=== PATIENT | female | born 1950 | race Caucasian/White ===

== ENCOUNTER 2019-03-16 07:07 | Inpatient (IN) ==
[2019-03-16] MEDS ORDERED: ASPIRIN 81 MG TAB.CHEW PO ONE (07:20)
[2019-03-16] MEDS ORDERED: LORazepam 2 MG/ML DISP.SYRIN IV ONE (07:23)
[2019-03-16] MEDS ORDERED: CYCLOBENZAPRINE HCL 10 MG TABLET PO ONE (07:23)
--- NOTE | 2019-03-16 07:24 | ERNOTE ---
<Arin Ferris - Last Filed: 03/16/19 07:59> Lower Extremity HPI - Narrative Date of Service: 03/16/19 - General Time Seen by Provider: 03/16/19 07:10 Source: patient Exam Limitations: no limitations - Immun/Allergies/Home Medications Immunizations: IMMUNIZATION HX Immunizations Up to Date Yes History of Influenza Vaccine No Hx Pneumococcal Vaccination No Allergies/Adverse Reactions: Allergies Allergy/AdvReac Type Severity Reaction Status Date / Time No Known Allergies Allergy Verified 03/16/19 12:17 Home Medications: HOME MEDICATIONS Naproxen Sodium [Aleve] 220 mg PO DAILY 03/04/19 [Last Taken Unknown] Acetaminophen 650 mg PO PRN 03/16/19 [Last Taken Unknown] Amlodipine Besylate 5 mg PO 03/16/19 [Last Taken Unknown] Arginine/Ascorbate Sod/Jovana AC [Arginaid Powder] 1 ea PO 03/16/19 [Last Taken Unknown] Aspirin [Aspirin Chewable] 81 mg PO DAILY 03/16/19 [Last Taken Unknown] Atorvastatin Calcium 80 mg PO HS 03/16/19 [Last Taken Unknown] Bisacodyl [Dulcolax Suppository] 10 mg RC DAILY PRN 03/16/19 [Last Taken Unknown] Clopidogrel Bisulfate [Plavix] 75 mg PO 03/16/19 [Last Taken Unknown] Lisinopril [Zestril] 10 mg PO 03/16/19 [Last Taken Unknown] Metoprolol Tartrate 50 mg PO 03/16/19 [Last Taken Unknown] Promethazine HCl [Phenergan (Promethazine)] 12.5 mg PO 03/16/19 [Last Taken Unknown] Promethazine HCl [Phenergan (Promethazine)] 12.5 mg PO Q4H PRN 03/16/19 [Last Taken Unknown] Sennosides/Docusate Sodium [Senna-S Tablet] 2 ea PO BID 03/16/19 [Last Taken Unknown] Warfarin Sodium [Jantoven] 2 mg PO 03/16/19 [Last Taken Unknown] oxyCODONE HCL/ACETAMINOPHEN [Oxycodone-Acetaminophen 5-325] 2 ea PO 10XD 03/16/19 [Last Taken Unknown] - History of Present Illness Narrative: Patient is brought by ambulance from nursing facility where she is in a fall, hip fracture and fixation surgery. She is complaining of bilateral leg pain in the knees, thighs and lower extremities. She states the pain is severe, crampin g, comes and goes. She is also complaining of pain all over. She has had 2 Percocet in the nursing facility, also had a nitroglycerin in the nursing facility before she was transferred. She received Toradol IV in the ambulance prior to arrival here. Patient continues to state that she has pain all over including some chest discomfort and shortness of breath. She is quite anxious. She did have an FL while she was in the hospital for her hip fracture. She is currently on Coumadin. She states in the nursing facility she is getting around both with walker and wheelchair. She states she has not had a fall recently. The pain just became worse while she was sleeping and then when she got up this morning. Again, she denies a fall. Her hip surgery was on the right hip. She states that yesterday she was incontinent of stool. She feels the need to have a BM now as well. Occurred: this morning Location of Incident: other - Nursing facility Method of Injury: Reports: no apparent injury. Denies: fell Review of Systems - Review of Systems Constitutional: Present: weakness. Absent: fever, chills ENT: Present: no symptoms reported Respiratory: Present: no symptoms reported Cardiology: Present: chest pain. Absent: syncope, edema Gastrointestinal/Abdominal: Present: no symptoms reported Skin: Present: no symptoms reported Neurological: Present: anxiety, headache, weakness, numbness, tingling Medical History (Last Reviewed 03/16/19 @ 07:42 by Arin Ferris MD) CVA (cerebral vascular accident) Hypertension Surgical History: Surgical History (Last Reviewed 03/16/19 @ 07:42 by Arin Ferris MD) No pertinent past surgical history Family History: Family History (Last Reviewed 03/16/19 @ 07:42 by Arin Ferris MD) Other Family history unknown Social History: (Last Reviewed 03/16/19 @ 07:42 by Arin Ferris MD) Social History: adopted: Yes adopted comment: raised by other family not parents lives independently: Yes household members: none current occupational status: retired Tobacco: Smoking Status: Former smoker Alcohol: alcohol intake: former Substance Use: substance use type: does not use Physical Exam - Physical Exam General Appearance: Present: wd/wn, moderate distress Head Exam: Present: normal inspection, no evidence of injury Ears, Nose, Throat: Present: normal ENT inspection Neck: Present: normal inspection, supple Respiratory: Present: no respiratory distress, chest nontender, lungs clear Cardiovascular/Chest: Present: regular rate, rhythm, tachycardia Gastrointestinal/Abdominal: Present: normal bowel sounds, nontender Extremity Exam: Present: normal inspection, no edema, other - Patient has intact sensation bilaterally. She complains of cramping severe pain. She does state in the past she has had muscle spasms which have continued to bother her since surgery. Capillary refill is intact distally. Dorsalis pedis pulses are strong bilaterally. She wiggles her feet just fine, motor is intact. She complains of pain numbness and tingling bilaterally. There are no focal neurologic symptoms. Neurological Exam: Present: alert, oriented, normal mood/affect, no motor/sensor y deficits Progress - Vital Signs Patient's Vital Signs:: I have reviewed the patient's vital signs. Vital Signs: Vital Signs 03/16/19 07:10 Temperature 36.4 C Pulse Rate 101 H Respiratory Rate 32 H Blood Pressure 112/70 - EKG EKG #1 EKG: NSR EKG read: Interp. by me EKG Comments: Patient is EKG shows sinus tachycardia with a ventricular rate of 102. I do not appreciate any ST elevation or depression. - Progress/Reassessment Chief Complaint: Lower Extremity Pain/ Injury Progress:: Unchanged Progress Note-Subjective: 03/16/19 07:55 Patient's work-up is in progress. She is been given lorazepam and cyclobenzaprine in effort to help with her symptoms. Labs have just been drawn and her EKG completed. Aspirin has been administered. The patient does state that she starting to feel somewhat better. She also feels the need to have a bowel movement. We discussed this. I answered questions. Her care will be transitioned to oncoming ER physician. Departure Clinical Impression: Non-ST elevation FL (NSTEMI), Hyponatremia Anemia Qualifiers: Anemia type: unspecified type Qualified Code(s): D64.9 - Anemia, unspecified Fracture of hip, right, closed Qualifiers: Encounter type: subsequent encounter Fracture healing: with routine healing Qualified Code(s): S72.001D - Fracture of unspecified part of neck of right femur, subsequent encounter for closed fracture with routine healing - Departure Disposition: Still a patient Condition: Stable <Haydee Corbett - Last Filed: 03/16/19 12:48> Lower Extremity HPI - Immun/Allergies/Home Medications Immunizations: IMMUNIZATION HX Immunizations Up to Date Yes History of Influenza Vaccine No Hx Pneumococcal Vaccination No Medical History (Last Updated 03/16/19 @ 12:48 by Haydee Corbett MD) NSTEMI (non-ST elevated myocardial infarction) CVA (cerebral vascular accident) Hypertension Surgical History: Surgical History (Last Updated 03/16/19 @ 12:48 by Haydee Corbett MD) History of hysterectomy (Acute) History of hip surgery (Acute) Family History: Family History (Last Reviewed 03/16/19 @ 07:42 by Arin Ferris MD) Other Family history unknown Social History: (Last Reviewed 03/16/19 @ 07:42 by Arin Ferris MD) Social History: adopted: Yes adopted comment: raised by other family not parents lives independently: Yes household members: none current occupational status: retired Tobacco: Smoking Status: Former smoker Alcohol: alcohol intake: former Substance Use: substance use type: does not use Physical Exam - Physical Exam General Appearance: Present: wd/wn, no apparent distress Respiratory: Present: no respiratory distress, normal breath sounds, lungs clear Cardiovascular/Chest: Present: regular rate, rhythm Gastrointestinal/Abdominal: Present: nontender Extremity Exam: Present: normal inspection - well healing woundon lateral hip without sign of bleeding or induration Neurological Exam: Present: alert, oriented Skin Exam: Present: normal color, warm/dry Progress - Results and Orders Patient's Lab Results:: I have reviewed the patient's lab results. - Vital Signs Patient's Vital Signs:: I have reviewed the patient's vital signs. Vital Signs: Vital Signs 03/16/19 07:10 03/16/19 07:49 Temperature 36.4 C 36.4 C Pulse Rate 101 H 108 H Respiratory Rate 32 H 27 H Blood Pressure 112/70 133/66 O2 Sat by Pulse Oximetry 99 - X-Ray X-Ray #1 X-Ray: chest - hyperinflated, no acute changes Interpretation: Reviewed by me - Progress/Reassessment Progress Note-Subjective: 03/16/19 08:42 patient lethargic after medications but easily arousable, states generalized pain in 5/ discussed lab results including low Na and Hb, will get records from [facility], patient was transferred there on 03/04 after hip fracture as she had elevated troponin for cardiology consults prior to surgery, has been in [facility] for about a week. 03/16/19 10:30 reviewed chart form [facility], patient was evaluated by cardiology for elevated troponin, had echo and stress test, was felt to be stable for surgery and further conservative management had hip surgery on the , started on coumadin post op, on aspirin and plavix for her heart ENT consult for nose bleed was cauterized, Hb at discharge 10 updated patient and son on results and plan, patient states that she has had intermittent nose bleeds at the [facility], none currently, denies any other bleeding source 03/16/19 10:[address] Castillo, okay to admit for anemia and hyponatremia okay to transfuse one unit of RBCs as ordered and guiac all stools
[2019-03-16 07:41] LABS: Mean Cell Volume 98.5 fl (78-100); Mean Corpuscular Hemoglobin 34.3 pg (27-31); Mean Corpuscular Hgb Conc 34.8 g/dl (32-36); Mean Platelet Volume 8.5 fl (8-12.5); Neutrophil # 11.1 K/mm3 (1.3-6.0); Neutrophil % 85.8 % (42-75.0); Platelet Count 476 K/mm3 (150-450); Red Blood Count 2.01 M/mm3 (4.2-5.4); Red Cell Distribution Width 12.4 % (11.5-14.0)
[2019-03-16 07:59] LABS: Hematocrit 19.8 % (37.0-47.0); Hemoglobin 6.9 gm/dL (12.5-16.0)
[2019-03-16 08:09] LABS: Anion Gap 15.7 mmol/L (6.8-13.8); BUN/Creatinine Ratio 42.4 (9.0-21.6); Ca. Corrected For Albumin 8.9 mg/dL (8.4-10.2); Calcium * 8.4 mg/dL (7.9-10.9); Carbon Dioxide 20.8 mmol/L (24-32.6); Potassium 4.5 mmol/L (3.4-4.6); Total Protein 6.3 gm/dL (6.2-8.2); Troponin I 0.084 ng/mL (0.00-0.10)
[2019-03-16 08:19] LABS: Prothrombin Time (Patient) 41.6 Seconds (9.1-10.7)
[2019-03-16 08:21] LABS: INR 4.45 INR (0.92-1.08); Partial Thrombolplastin Time 43.7 Seconds (24-32)
[2019-03-16] MEDS ORDERED: NORMAL SALINE 1,000 ML IV ONE (08:45)
[2019-03-16] MEDS ORDERED: NORMAL SALINE 1,000 ML IV PRN (13:22)
--- NOTE | 2019-03-16 13:22 | DS ---
Transfer Discharge Summary - Diagnosis(s)/Problems (1) Sepsis Narrative: with end organ dysfunction Problem: Acute (2) Leukopenia Problem: Acute (3) Thrombocytosis Problem: Acute (4) Hyponatremia with decreased serum osmolality Problem: Acute (5) Hyperglycemia without ketosis Problem: Acute (6) Anemia Problem: Acute (7) CAD (coronary artery disease) Problem: Chronic (8) Hyperlipemia Problem: Chronic (9) Essential hypertension Problem: Chronic (10) COPD (chronic obstructive pulmonary disease) Problem: Chronic (11) Alcohol abuse Problem: Chronic - Course Description of Stay: 69 female recently diagnosed with coronary artery disease and NSTEMI in March,, with recent right intertrochanteric fracture of right proximal femur repaired by orthopedics at [facility] in March,, hyperlipidemia, essential hypertension, COPD with chronic cigarette abuse, alcohol abuse,presents from [facility] with complaints of fatigue and not feeling well. Associated with shortness of breath and intermittent chest pain. On arrival to the ER patient was tachycardic, tachypneic, EKG concerning for ST deviation and moderate T wave abnormality possible anterolateral ischemia. Cardiac work-up concerning for ischemia with troponins greater than 0.3. In comparison to medical records from [facility] on March 04, 2019, a significant change can be appreciated. Previous labs were largely unremarkable, however today I can appreciate leukopenia, thrombocytosis, acute drop in hemoglobin from 14 on March 04 2019 to 6.9 on admission today. Despite leukopenia, a left shift can be appreciated on labs. Patient has multiple electrolyte abnormalities, including hyponatremia, increased anion gap, hyperglycemia and dehydration. Patient currently on Coumadin and PT/INR is elevated at 4.45. Initially symptoms were attributed to an acute bleed, however source is unknown. Chest x-ray completed is unremarkable. Imaging of the abdomen and pelvis without contrast is pending, for evaluation for a possible bleed at surgical site. She is unable to provide a stool sample. She has signs of oliguria and is unable to pass urine. After evaluating patient and reviewing the medical records from [facility] and labs obtained today, there is concerne for sepsis with end organ dysfunction. Stat sepsis work-up completed. Due to hypotension, patient received a bolus of normal saline, type and cross completed and received 1 unit of packed red blood cells, followed by fluid resuscitation of 1 L of normal saline. Vancomycin 1250 mg IV x1 and Zosyn 3.375 mg IV x1 administered. Total patient received 2 L of normal saline prior to transfer. Patient states on March 04 2019, she fell presented to [place] ER found to have right hip fracture however due to cardiac condition patient was transferred to [facility] for further evaluation and treatment. Cardiac evaluation completed at [facility] center, cardiac Cath completed to revealed 50 to 59% stenosis within the left internal carotid on the basis of atherosclerotic plaque and probably less than 50% stenosis within the right internal carotid artery, EF was normal and nuclear stress test completed and findings consistent with ischemia. Dr. Laurent was a hydraulic rock drill operator on board during hospitalization. Once patient was stable, patient scheduled for repair of the right hip by Dr. Corado (orthopedic surgeon)MD. discharged to [facility]. Patient condition is critical however she is hemodynamically stable, however, if her condition was to acutely decompensate she may require vasopressors and need a central line and be admitted to the ICU. Due to patient's condition she will need to be transferred. [facility] was consulted for transfer. Discussed case with MD Flash and he accepted patient. We will continue to forward labs as they become available to [facility]. He advised nurse should call report to [facility] ICU, phone number provided: [phone]. Consultation Done:: Dr Pillo MD (Hospitalist) Procedures Performed: none - Results and Findings Results and Findings: Laboratory Results - last 24 hr 03/16/19 03/16/19 03/16/19 07:34 07:34 07:34 WBC 1.0 L RBC 2.01 L Hgb 6.9 L* D Hct 19.8 L* D MCV 98.5 MCH 34.3 H MCHC 34.8 RDW 12.4 Plt Count 476 H MPV 8.5 Immature Gran % (Auto) 0.50 H Immature Gran # (Auto) 0.06 H Neutrophils % 85.8 H Lymphocytes % 7.1 L Monocytes % 6.1 Eosinophils % 0.2 Basophils % 0.3 Nucleated RBC % 0.0 Neutrophils # 11.1 H Lymphocytes # 0.92 L Monocytes # 0.8 Eosinophils # 0.0 Absolute Basophils 0.0 PT 41.6 H INR (Anticoag Therapy) 4.45 H* PTT (Caitie) 43.7 H D Sodium 127 L Plasma Sodium 127 L Potassium 4.5 D Chloride 95 L Carbon Dioxide 20.8 L Anion Gap 15.7 H BUN 28 H D Creatinine 0.66 Est GFR (Non-Af Amer) 95 BUN/Creatinine Ratio 42.4 H Random Glucose 121 H Calcium 8.4 Calcium Adj for Albumin 8.9 Total Bilirubin 1.0 AST 57 H ALT 36 Alkaline Phosphatase 79 Troponin I 0.084 Total Protein 6.3 Albumin 3.0 L Blood Type Antibody Screen Crossmatch 03/16/19 08:00 WBC RBC Hgb Hct MCV MCH MCHC RDW Plt Count MPV Immature Gran % (Auto) Immature Gran # (Auto) Neutrophils % Lymphocytes % Monocytes % Eosinophils % Basophils % Nucleated RBC % Neutrophils # Lymphocytes # Monocytes # Eosinophils # Absolute Basophils PT INR (Anticoag Therapy) PTT (Caitie) Sodium Plasma Sodium Potassium Chloride Carbon Dioxide Anion Gap BUN Creatinine Est GFR (Non-Af Amer) BUN/Creatinine Ratio Random Glucose Calcium Calcium Adj for Albumin Total Bilirubin AST ALT Alkaline Phosphatase Troponin I Total Protein Albumin Blood Type A Positive Antibody Screen Negative Crossmatch See Detail - Medications Medications: Active Medications Discontinued Medications Aspirin (Aspirin Chewable) 324 mg PO ONCE ONE Stop: 03/16/19 07:21 Last Admin: 03/16/19 07:38 Dose: 324 mg Documented by: Cyclobenzaprine HCl (Flexeril) 10 mg PO ONCE ONE Stop: 03/16/19 07:24 Last Admin: 03/16/19 07:38 Dose: 10 mg Documented by: Sodium Chloride (Sodium Chloride 0.9%) 1,000 mls @ 999 mls/hr IV .Q1H1M ONE Stop: 03/16/19 09:45 Last Infusion: 03/16/19 10:00 Dose: Infused Documented by: Lorazepam (Ativan) 1 mg IV ONCE ONE Stop: 03/16/19 07:24 Last Admin: 03/16/19 07:38 Dose: 1 mg Documented by: - Disposition Disposition: Short Term Hospital Inpatient Condition: Critical Discharge Date: 03/16/19 Discharge Time: 14:46
[2019-03-16] MEDS ORDERED: VANCOMYCIN HCL IV ONE ×2 (13:38)
[2019-03-16] MEDS ORDERED: DEXTROSE 5% IV ONE ×2 (13:38)
[2019-03-16] MEDS ORDERED: WATER IV ONE ×2 (13:38)
[2019-03-16] MEDS ORDERED: PIPERACILLIN SODIUM/TAZOBACTAM 3.375 GM in DEXTROSE 5 % IN WATER 100 ML IV SCH ×2 (13:45)
[2019-03-16 13:47] LABS: Urine Appearance Slightly Cloudy (CLEAR); Urine Bilirubin Negative (NEGATIVE); Urine Color Yellow
[2019-03-16 13:48] LABS: Urine Blood 25 /ul (NEGATIVE); Urine Ketone Negative (NEGATIVE); Urine Nitrite Positive (NEGATIVE); Urine Protein Negative (NEGATIVE); Urine Urobilinogen Normal (NORMAL)
[2019-03-16 13:49] LABS: Urine Bacteria 4+; Urine RBC 0-5 /hpf (0-5); Urine WBC >50 /hpf (0-5)
[2019-03-16 14:05] LABS: CRP 2.3 mg/dL (0.0-0.9)
[2019-03-16] MEDS ORDERED: PIPERACILLIN SODIUM/TAZOBACTAM 3.375 GM in DEXTROSE 5 % IN WATER 100 ML IV ONE ×2 (14:15)
[2019-03-16 14:19] LABS: Troponin I 0.328 ng/mL (0.00-0.10)
[2019-03-16 16:03] VITALS: BP 132/74
--- NOTE | 2019-03-19 15:09 | HP ---
Chief Complaint - Chief Complaint Date of Service: 03/16/19 Time of Service: 12:00 Chief Complaint: sob, fatigue and weakness History of Present Illness: 69 female recently diagnosed with coronary artery disease and NSTEMI in March,, with recent right intertrochanteric fracture of right proximal femur repaired by orthopedics at [facility] in March,, hyperlipidemia, essential hypertension, COPD with chronic cigarette abuse, alcohol abuse,presents from [facility] with complaints of fatigue and not feeling well. Associated with shortness of breath and intermittent chest pain. On arrival to the ER patient was tachycardic, tachypneic, EKG concerning for ST deviation and moderate T wave abnormality possible anterolateral ischemia. Cardiac work-up concerning for ischemia with troponins greater than 0.3. In comparison to medical records from [facility] on March 04, 2019, a significant change can be appreciated. Previous labs were largely unremarkable, however today I can appreciate leukopenia, thrombocytosis, acute drop in hemoglobin from 14 on March 04 2019 to 6.9 on admission today. Despite leukopenia, a left shift can be appreciated on labs. Patient has multiple electrolyte abnormalities, including hyponatremia, increased anion gap, hyperglycemia and dehydration. Patient currently on Coumadin and PT/INR is elevated at 4.45. Initially symptoms were attributed to an acute bleed, however source is unknown. Chest x-ray completed is unremarkable. Imaging of the abdomen and pelvis without contrast is pending, for evaluation for a possible bleed at surgical site. She is unable to provide a stool sample. She has signs of oliguria and is unable to pass urine. After evaluating patient and reviewing the medical records from [facility] and labs obtained today, there is concerne for sepsis with end organ dysfunction. Stat sepsis work-up completed. Due to hypotension, patient received a bolus of normal saline, type and cross completed and received 1 unit of packed red blood cells, followed by fluid resuscitation of 1 L of normal saline. Vancomycin 1250 mg IV x1 and Zosyn 3.375 mg IV x1 administered. Total patient received 2 L of normal saline prior to transfer. Patient states on March 04 2019, she fell presented to [place] ER found to have right hip fracture however due to cardiac condition patient was transferred to [facility] for further evaluation and treatment. Cardiac evaluation completed at [facility] center, cardiac Cath completed to revealed 50 to 59% stenosis within the left internal carotid on the basis of atherosclerotic plaque and probably less than 50% stenosis within the right internal carotid artery, EF was normal and nuclear stress test completed and findings consistent with ischemia. Dr. Laurent was a bar captain on board during hospitalization. Once patient was stable, patient scheduled for repair of the right hip by Dr. Corado (orthopedic surgeon)MD. discharged to [facility]. Patient condition is critical however she is hemodynamically stable, however, if her condition was to acutely decompensate she may require vasopressors and need a central line and be admitted to the ICU. Due to patient's condition she will need to be transferred. [facility] was consulted for transfer. Discussed case with MD Flash and he accepted patient. We will continue to forward labs as they become available to [facility]. He advised nurse should call report to [facility] ICU, phone number provided: [phone]. Medical History (Last Updated 03/16/19 @ 12:48 by Haydee Corbett MD) CVA (cerebral vascular accident) Hypertension NSTEMI (non-ST elevated myocardial infarction) Surgical History: Surgical History (Last Updated 03/16/19 @ 12:48 by Haydee Corbett MD) History of hysterectomy (Acute) History of hip surgery (Acute) Family History: Family History (Last Reviewed 03/16/19 @ 07:42 by Arin Ferris MD) Other Family history unknown Social History: (Last Reviewed 03/16/19 @ 12:17 by Juanis Almazan RN) Social History: adopted: Yes adopted comment: raised by other family not parents lives independently: Yes household members: none current occupational status: retired Tobacco: Smoking Status: Former smoker Alcohol: alcohol intake: former Substance Use: substance use type: does not use Review Of Systems (GEN) - Review of Systems Generalized/Overall Review: Present: Weakness, Chills, Fever Cardiac: Absent: Chest Pain Abdominal: Present: Nausea, Vomiting Endocrine: Present: Intolerance to Cold Immunizations: IMMUNIZATION HX Immunizations Up to Date Yes History of Influenza Vaccine No Hx Pneumococcal Vaccination No Allergies/Adverse Reactions: Allergies Allergy/AdvReac Type Severity Reaction Status Date / Time No Known Allergies Allergy Verified 03/16/19 12:17 Home Medications: HOME MEDICATIONS Acetaminophen 650 mg PO Q4H PRN 03/16/19 [Last Taken Unknown] Amlodipine Besylate 5 mg PO DAILY 03/16/19 [Last Taken Unknown] Arginine/Ascorbate Sod/Jovana AC [Arginaid Powder] 1 ea PO DAILY 03/16/19 [Last Taken Unknown] Aspirin [Aspirin Chewable] 81 mg PO DAILY 03/16/19 [Last Taken Unknown] Atorvastatin Calcium 80 mg PO HS 03/16/19 [Last Taken Unknown] Bisacodyl [Dulcolax Suppository] 10 mg RC DAILY PRN 03/16/19 [Last Taken Unknown] Clopidogrel Bisulfate [Plavix] 75 mg PO DAILY 03/16/19 [Last Taken Unknown] Lisinopril [Zestril] 10 mg PO DAILY 03/16/19 [Last Taken Unknown] Metoprolol Tartrate 50 mg PO BID 03/16/19 [Last Taken Unknown] Promethazine HCl [Phenergan (Promethazine)] 12.5 mg PO Q4H PRN 03/16/19 [Last Taken Unknown] Sennosides/Docusate Sodium [Senna-S Tablet] 2 ea PO BID 03/16/19 [Last Taken Unknown] Warfarin Sodium [Jantoven] 2 mg PO DAILY 03/16/19 [Last Taken Unknown] oxyCODONE HCL/ACETAMINOPHEN [Oxycodone-Acetaminophen 5-325] 2 ea PO BID 03/16/19 [Last Taken Unknown] Exam - Exam Vital Signs: Vital Signs - Last Taken Temp 36.8 C 03/16/19 15:50 Pulse 113 H 03/16/19 15:50 Resp 20 03/16/19 15:50 BP 132/74 03/16/19 15:50 Pulse Ox 99 03/16/19 15:50 Constitutional: Present: Alert, Oriented x3, Cooperative, Acute distress, Lethargic ENT Exam: Present: hearing grossly normal Eye Exam: bilateral eye: normal inspection, PERRL, abnormal EOM Neck: Present: full range of motion Respiratory: Present: lungs clear, normal breath sounds, no accessory muscle use Cardiovascular/Chest: Present: normal peripheral pulses, tachycardia, systolic murmur Abdomen: Present: Normal bowel sounds, soft Extremity: Present: leg pain, slow capillary refill. Absent: lower extremity edema, pedal edema Skin Exam: Present: cool/dry Appearance: Present: disheveled Diagnostic Studies: Microbiology 03/16/19 13:31 Blood Culture - Preliminary Blood NO GROWTH AFTER 48 HOURS 03/16/19 13:15 Blood Culture - Preliminary Blood NO GROWTH AFTER 48 HOURS Laboratory Results WBC 1.0 K/mm3 (4.0-10.5) L 03/16/19 07:34 RBC 2.01 M/mm3 (4.2-5.4) L 03/16/19 07:34 Hgb 6.9 gm/dL (12.5-16.0) L* D 03/16/19 07:34 Hct 19.8 % (37.0-47.0) L* D 03/16/19 07:34 MCV 98.5 fl (78-100) 03/16/19 07:34 MCH 34.3 pg (27-31) H 03/16/19 07:34 MCHC 34.8 g/dl (32-36) 03/16/19 07:34 RDW 12.4 % (11.5-14.0) 03/16/19 07:34 Plt Count 476 K/mm3 (150-450) H 03/16/19 07:34 MPV 8.5 fl (8-12.5) 03/16/19 07:34 Immature Gran % (Auto) 0.50 % (0.001-0.429) H 03/16/19 07:34 Immature Gran # (Auto) 0.06 K/mm3 (0.000-0.0310) H 03/16/19 07:34 Neutrophils % 85.8 % (42-75.0) H 03/16/19 07:34 Lymphocytes % 7.1 % (20-51) L 03/16/19 07:34 Monocytes % 6.1 % (0.0-9) 03/16/19 07:34 Eosinophils % 0.2 % (0.0-3.0) 03/16/19 07:34 Basophils % 0.3 % (0.0-1.0) 03/16/19 07:34 Nucleated RBC % 0.0 k/mm3 (0-1) 03/16/19 07:34 Neutrophils # 11.1 K/mm3 (1.3-6.0) H 03/16/19 07:34 Lymphocytes # 0.92 k/mm3 (1.5-3.5) L 03/16/19 07:34 Monocytes # 0.8 k/mm3 (0.0-1.0) 03/16/19 07:34 Eosinophils # 0.0 k/mm3 (0.0-0.7) 03/16/19 07:34 Absolute Basophils 0.0 k/mm3 (0.0-0.1) 03/16/19 07:34 PT 41.6 Seconds (9.1-10.7) H 03/16/19 07:34 INR (Anticoag Therapy) 4.45 INR (0.92-1.08) H* 03/16/19 07:34 PTT (Caitie) 43.7 Seconds (24-32) H D 03/16/19 07:34 D-Dimer 1.79 ug/mL (0.19-0.49) H 03/16/19 07:30 pCO2 26.5 mmHg (32.0-45.0) L 03/16/19 13:32 pO2 85.0 mmHg (83.0-108.0) 03/16/19 13:32 HCO3 18.7 mmol/L (21.0-28.0) L 03/16/19 13:32 Total CO2 19.5 mmol/L (19.0-24.0) 03/16/19 13:32 Base Excess -4.2 mmol/L (-2.0-3.0) L 03/16/19 13:32 ABG pH 7.47 (7.35-7.45) H 03/16/19 13:32 ABG O2 Sat (Measured) 97.1 % (94.0-98.0) 03/16/19 13:32 Sodium 127 mmol/L (132-142) L 03/16/19 07:34 Plasma Sodium 127 mmol/L (130-142) L 03/16/19 07:34 Potassium 4.5 mmol/L (3.4-4.6) D 03/16/19 07:34 Chloride 95 mmol/L (97-106) L 03/16/19 07:34 Carbon Dioxide 20.8 mmol/L (24-32.6) L 03/16/19 07:34 Anion Gap 15.7 mmol/L (6.8-13.8) H 03/16/19 07:34 BUN 28 mg/dL (3-23) H D 03/16/19 07:34 Creatinine 0.55 mg/dL (0.4-1.4) 03/16/19 13:31 Est GFR (Non-Af Amer) 95 mL/min (60-130) 03/16/19 07:34 BUN/Creatinine Ratio 42.4 (9.0-21.6) H 03/16/19 07:34 Random Glucose 121 mg/dL (70-110) H 03/16/19 07:34 Lactic Acid, Venous 1.0 mmol/L (0.4-2.0) 03/16/19 13:31 Calcium 8.4 mg/dL (7.9-10.9) 03/16/19 07:34 Calcium Adj for Albumin 8.9 mg/dL (8.4-10.2) 03/16/19 07:34 Total Bilirubin 1.0 mg/dL (0.0-1.1) 03/16/19 07:34 AST 57 U/L (0-48) H 03/16/19 07:34 ALT 36 U/L (19-67) 03/16/19 07:34 Alkaline Phosphatase 79 U/L (50-170) 03/16/19 07:34 Troponin I 0.328 ng/mL (0.00-0.10) H* 03/16/19 13:31 C-Reactive Prot, Quant 2.3 mg/dL (0.0-0.9) H 03/16/19 13:31 Total Protein 6.3 gm/dL (6.2-8.2) 03/16/19 07:34 Albumin 3.0 gm/dl (3.4-5.0) L 03/16/19 07:34 Urine Color Yellow 03/16/19 13:26 Urine Appearance Slightly cloudy (CLEAR) 03/16/19 13:26 Urine pH 6.0 pH (5.0-7.0) 03/16/19 13:26 Ur Specific [place] 1.010 SP.GR. (1.005-1.010) 03/16/19 13:26 Urine Protein Negative mg/dL (NEGATIVE) 03/16/19 13:26 Urine Glucose (UA) Negative mg/dL (NEGATIVE) 03/16/19 13:26 Urine Ketones Negative mg/dL (NEGATIVE) 03/16/19 13:26 Urine Blood 25 /ul (NEGATIVE) H 03/16/19 13:26 Urine Nitrate Positive (NEGATIVE) H 03/16/19 13:26 Urine Bilirubin Negative mg/dl (NEGATIVE) 03/16/19 13:26 Urine Urobilinogen Normal EU/dl (NORMAL) 03/16/19 13:26 Ur Leukocyte Esterase 500 /ul (NEGATIVE) H 03/16/19 13:26 Urine RBC 0-5 /hpf (0-5) 03/16/19 13:26 Urine WBC >50 /hpf (0-5) H 03/16/19 13:26 Ur Epithelial Cells 0-5 /hpf (0-5) 03/16/19 13:26 Urine Bacteria 4+ (NONE) H 03/16/19 13:26 Urine Culture Comments Culture to follow 03/16/19 13:26 Blood Type A Positive 03/16/19 08:00 Antibody Screen Negative 03/16/19 08:00 Crossmatch See Detail 03/16/19 08:00 Assessment/Plan - Procedures Results: Transferred to [facility] for Sepsis, Immunosuppression and acute blood loss secondary to post-op complication. [facility] consulted and accepted transfer Refer to [facility] for details - Assessment/Plan (1) Sepsis Problem: Acute (2) Leukopenia Problem: Acute (3) Thrombocytosis Problem: Acute (4) Hyponatremia with decreased serum osmolality Problem: Acute (5) Hyperglycemia without ketosis Problem: Acute (6) Anemia Problem: Acute Qualifiers: Anemia type: unspecified type Qualified Code(s): D64.9 - Anemia, unspecified (7) CAD (coronary artery disease) Problem: Chronic (8) Hyperlipemia Problem: Chronic (9) Essential hypertension Problem: Chronic (10) COPD (chronic obstructive pulmonary disease) Problem: Chronic (11) Alcohol abuse Problem: Chronic
== END 2019-03-16 16:04 | disposition short-term general hospital (02) | DRG 871 ==
LOC: ER 07:07 → MS 10:59
PROVIDERS: ADMIT Family Medicine; ATTEND Family Medicine
DX: I21.4 Non-ST elevation (NSTEMI) myocardial infarction; R73.9 Hyperglycemia, unspecified; E87.1 Hypo-osmolality and hyponatremia; D72.819 Decreased white blood cell count, unspecified; J44.9 Chronic obstructive pulmonary disease, unspecified; E78.5 Hyperlipidemia, unspecified; F17.210 Nicotine dependence, cigarettes, uncomplicated; I25.10 Atherosclerotic heart disease of native coronary artery without angina pectoris; F10.10 Alcohol abuse, uncomplicated; A41.9 Sepsis, unspecified organism; I10 Essential (primary) hypertension; I95.9 Hypotension, unspecified; D47.3 Essential (hemorrhagic) thrombocythemia; R65.20 Severe sepsis without septic shock; D62 Acute posthemorrhagic anemia; E86.0 Dehydration; S72.001D Fracture of unspecified part of neck of right femur, subsequent encounter for closed fracture with routine healing
CPT/HCPCS: 36415; 36600; 71020; 71046; 74177; 80053; 81001; 82565; 82803; 83605; 84484; 85025; 85379; 85610; 85730; 86140; 86850; 87040; 87081; 87086; 93005; 96361; 96374; 99285; P9016; Q9967